=== PATIENT | female | born 1990 | race African-American/Black ===

== ENCOUNTER 2016-10-19 23:13 | Emergency (ER) | payer OTHER ==
[~2016-10-19 23:13] MED LIST: NAPROSYN500 MG PO; PROVERA PO; ROBAXIN500 MG PO
[2016-10-19] MEDS ORDERED: NO MEDICATIONS (23:41)
[2016-10-20 01:22] LABS: URINE SOURCE CLEAN CATCH
[2016-10-20 01:25] LABS: MICRO INDICATED? YES; URINE APPEARANCE CLEAR; URINE BILIRUBIN NEG (NEG); URINE BLOOD TRACE-INTACT (NEG); URINE COLOR YELLOW; URINE GLUCOSE NEG (NORM); URINE KETONE NEG (NEG); URINE LEUKOCYTE ESTERASE 1+ (NEG); URINE NITRATE NEG (NEG); URINE PROTEIN NEG (NEG); URINE SPECIFIC GRAVITY >=1.030 (1.003-1.035); URINE UROBILINOGEN 0.2 MG/DL (NORM)
[2016-10-20 01:26] LABS: CULTURE INDICATED? YES; URINE BACTERIA 1+ (NEG); URINE MUCUS PRESENT; URINE RBC NEG /[HPF] (0-2); URINE SQUAMOUS EPITHELIAL CELL OCCAS /[HPF]; URINE TRANSITIONAL EPI CELLS FEW /[HPF]
[2016-10-22 11:31] LABS: CHLAMYDIA TRACH Not Detected (Not Detected); N GONOR Not Detected (Not Detected)
== END 2016-10-20 01:56 | disposition home or self-care (01) ==
LOC: SED 23:13
PROVIDERS: Physician Assistant Medical
DX: O99.89 Other specified diseases and conditions complicating pregnancy, childbirth and the puerperium (principal); N89.8 Other specified noninflammatory disorders of vagina; Z3A.01 Less than 8 weeks gestation of pregnancy
CPT/HCPCS: 81003; 84703; 87086; 87210; 87491; 87591; 87808; 87905; 99283